=== PATIENT | male | born 1985 | race Caucasian/White ===

== ENCOUNTER → 2016-09-01 | Outpatient (CLI) | payer BC ==
--- NOTE | 2016-09-01 22:09 | MR ---
EXAMINATION TYPE: MR lumbar spine wo/w con DATE OF EXAM: 09/01/2016 7:17 PM COMPARISON: NONE HISTORY: Surgery 2012 TECHNIQUE: Multiplanar, multisequence images of the lumbar spine were acquired utilizing 20 mL intravenous Multi Cassandra gadolinium contrast. L1-L2: Normal disc appearance without desiccation. No herniation, protrusion or disc bulging. No ca nal stenosis is present. Foramina are patent bilaterally. L2-L3: Normal disc appearance without desiccation. No herniation, protrusion or disc bulging. No ca nal stenosis is present. Foramina are patent bilaterally. L3-L4: Normal disc appearance without desiccation. No herniation, protrusion or disc bulging. No ca nal stenosis is present. Foramina are patent bilaterally. L4-L5: Normal disc appearance without desiccation. No herniation, protrusion or disc bulging. No ca nal stenosis is present. Foramina are patent bilaterally. L5-S1: Right-sided laminectomy change is suspected, there is loss of fat signal about the right S1 ne rve root, postoperative changes are present in the subcutaneous fat posterior to this level. No signi ficant foraminal encroachment. Loss of disc height and signal is present, right posterior paracentral disc herniation may be recurrent at this level contacting the proximal S1 nerve root on the right. N o significant central stenosis. Abnormal signal present at the posterior aspect of the disc is likely postoperative. Minimal spurring is present at L5-S1 at this level. Lumbar vertebral bodies show preserved height and alignment, endplate discogenic marrow signal change present L5-S1 No paraspinal masses are identified. Conus medullaris has a normal appearance. IMPRESSION: Small right posterior paracentral disc herniation may be recurrent and L5-S1, postoperative changes a re present, correlate for right S1 radiculopathy.
== END | disposition home or self-care (01) ==
LOC: RADMRIMAIN 18:15
PROVIDERS: ATTEND Physician Assistant
DX: M51.27 Other intervertebral disc displacement, lumbosacral region (principal)
CPT/HCPCS: 72158; A9577

== ENCOUNTER 2022-04-03 01:24 | Emergency (ER) | payer BC ==
[2022-04-03 01:36] VITALS: RESP 18; TEMP 98.5
--- NOTE | 2022-04-03 02:13 | ED ---
General Adult HPI - General Chief complaint: Upper Respiratory Infection Stated complaint: Congestion, GENA Time Seen by Provider: 04/03/22 01:45 Source: patient, RN notes reviewed Mode of arrival: wheelchair Limitations: no limitations - History of Present Illness Initial comments: This is a 36-year-old male who presents to the emergency Department with complaints of difficulty breathing, onset this evening. Patient states he has had a cough all day but now is having difficulty clearing the congestion from his throat and chest. States he had a root canal done yesterday and was feeling fine. Did not take any medications to treat his symptoms. Denies fever, chills, headache, dizziness, chest pain, abdominal pain, nausea, vomiting, diarrhea, or dysuria. - Related Data Home Medications Medication Instructions Recorded Confirmed ALPRAZolam [Xanax] 1 mg PO QID 12/31/15 12/31/15 ARIPiprazole [Abilify] 10 mg PO DAILY 12/31/15 12/31/15 Baclofen 20 mg PO TID PRN 12/31/15 12/31/15 Clobetasol Propionate [Temovate 1 applic TOPICAL BID 12/31/15 12/31/15 0.05% Cream] Dextroamphetamine/Amphetamine 30 mg PO BID 12/31/15 12/31/15 [Adderall] buPROPion XL [Wellbutrin XL] 300 mg PO DAILY 12/31/15 12/31/15 oxyCODONE HCL [oxyCODONE HCL (IR)] 15 mg PO 5XD 12/31/15 12/31/15 Previous Rx's Medication Instructions Recorded ALPRAZolam [Xanax] 1 mg PO QID tab 01/02/16 ARIPiprazole [Abilify] 10 mg PO DAILY tab 01/02/16 Acetaminophen Tab [Tylenol] 650 mg PO Q6HR PRN #0 tab 01/02/16 Clobetasol Propionate [Temovate 1 applic TOPICAL BID applic 01/02/16 0.05% Cream] Pantoprazole Sodium [Protonix] 40 mg PO AC-BRKFST #30 tablet. 01/02/16 bisacodyL [Dulcolax] 5 mg PO DAILY PRN #0 tablet. 01/02/16 buPROPion XL [Wellbutrin XL] 300 mg PO DAILY tab.er.24h 01/02/16 oxyCODONE HCL [OxyIR] 15 mg PO 5XD tab 01/02/16 Azithromycin [Zithromax] 250 mg PO DAILY 1 Days #4 tab 04/03/22 guaiFENesin-DM 600/30MG [Mucinex 1 tab PO Q12HR PRN #14 tab 04/03/22 Dm] Allergies Allergy/AdvReac Type Severity Reaction Status Date / Time No Known Allergies Allergy Verified 04/03/22 01:32 Review of Systems ROS Statement: Those systems with pertinent positive or pertinent negative responses have been documented in the HPI. ROS Other: All systems not noted in ROS Statement are negative. Past Medical History Past Medical History: Thyroid Disorder History of Any Multi-Drug Resistant Organisms: None Reported Past Surgical History: Back Surgery Additional Past Surgical History / Comment(s): neck surgery Past Anesthesia/Blood Transfusion Reactions: No Reported Reaction Past Psychological History: Anxiety, Depression Smoking Status: Never smoker Past Alcohol Use History: None Reported Past Drug Use History: None Reported - Past Family History Father History Unknown: Yes General Exam Limitations: no limitations General appearance: alert, in no apparent distress (Well-developed, well-n ourished male who is somewhat ill in appearance but in no acute distress. Initial temperature 98.5, pulse 107, respirations 18, blood pressure 138/82, pulse ox 94% on room air.) Eye exam: Present: normal appearance. Absent: scleral icterus, conjunctival injection ENT exam: Present: normal exam, normal oropharynx, mucous membranes moist, TM's normal bilaterally Expanded Mouth exam: Present: normal external inspection, tongue normal. Absent: drooling, trismus Teeth exam: Present: normal inspection Throat exam: normal inspection. negative: tonsillar erythema, tonsillomegaly, tonsillar exudate Neck exam: Present: normal inspection, full ROM. Absent: tenderness, meningismus, lymphadenopathy Respiratory exam: Present: normal lung sounds bilaterally. Absent: respiratory distress, wheezes, rales, rhonchi, stridor, chest wall tenderness Cardiovascular Exam: Present: normal rhythm, tachycardia, normal heart sounds. Absent: systolic murmur, diastolic murmur, rubs, gallop, clicks GI/Abdominal exam: Present: soft, normal bowel sounds. Absent: distended, tende rness, guarding, rebound, rigid Neurological exam: Present: alert, oriented X3 Psychiatric exam: Present: flat affect Skin exam: Present: warm, dry, intact, normal color. Absent: rash Course Vital Signs 04/03/22 04/03/22 04/03/22 01:32 02:10 03:14 Temperature 98.5 F Pulse Rate 107 H 101 H Respiratory 18 18 Rate Blood Pressure 138/82 147/89 O2 Sat by Pulse 94 L 95 Oximetry Medical Decision Making - Medical Decision Making This is a 36-year-old male who presents to the emergency department accompanied by his father for evaluation of cough and congestion. Upon exam, patient appears to be feeling poorly but is in no acute distress. He has audible congestion and a loose productive cough. Respirations are unlabored. Patient does not appear toxic. He is afebrile though mildly tachycardic. Chest x-ray was obtained and was unremarkable. Laboratory studies were reviewed with no significant findings. Covid is negative. Patient will be discharged home with a Z-Missael and an expectorant. He is encouraged to follow up with his PCP for a recheck on Wednesday. Return parameters were discussed in detail. Patient and father verbalized understanding and agreed with this plan. Attending: Asad. - Lab Data Result diagrams: 04/03/22 02:41 04/03/22 02:41 Lab Results 04/03/22 04/03/22 04/03/22 Range/Units 02:10 02:41 02:41 WBC 9.2 (3.8-10.6) k/uL RBC 5.16 (4.30-5.90) m/uL Hgb 15.1 (13.0-17.5) gm/dL Hct 44.4 (39.0-53.0) % MCV 86.2 (80.0-100.0) fL MCH 29.3 (25.0-35.0) pg MCHC 34.0 (31.0-37.0) g/dL RDW 14.1 (11.5-15.5) % Plt Count 407 (150-450) k/uL MPV 6.6 Neutrophils % 83 % Lymphocytes % 12 % Monocytes % 3 % Eosinophils % 1 % Basophils % 0 % Neutrophils # 7.6 (1.3-7.7) k/uL Lymphocytes # 1.1 (1.0-4.8) k/uL Monocytes # 0.3 (0-1.0) k/uL Eosinophils # 0.1 (0-0.7) k/uL Basophils # 0.0 (0-0.2) k/uL PT 10.7 (9.0-12.0) sec INR 1.0 (<1.2) APTT 25.6 (22.0-30.0) sec D-Dimer 0.35 (<0.60) mg/L FEU Sodium (137-145) mmol/L Potassium (3.5-5.1) mmol/L Chloride (98-107) mmol/L Carbon Dioxide (22-30) mmol/L Anion Gap mmol/L BUN (9-20) mg/dL Creatinine (0.66-1.25) mg/dL Est GFR (CKD-EPI)AfAm (>60 ml/min/1.73 sqM) Est GFR (CKD-EPI)NonAf (>60 ml/min/1.73 sqM) Glucose (74-99) mg/dL Plasma Lactic Acid Moses (0.7-2.0) mmol/L Calcium (8.4-10.2) mg/dL Magnesium (1.6-2.3) mg/dL Total Bilirubin (0.2-1.3) mg/dL AST (17-59) U/L ALT (4-49) U/L Alkaline Phosphatase (38-126) U/L Troponin I (0.000-0.034) ng/mL Total Protein (6.3-8.2) g/dL Albumin (3.5-5.0) g/dL Coronavirus (PCR) Not Detected (Not Detectd) 04/03/22 04/03/22 04/03/22 Range/Units 02:41 02:41 02:41 WBC (3.8-10.6) k/uL RBC (4.30-5.90) m/uL Hgb (13.0-17.5) gm/dL Hct (39.0-53.0) % MCV (80.0-100.0) fL MCH (25.0-35.0) pg MCHC (31.0-37.0) g/dL RDW (11.5-15.5) % Plt Count (150-450) k/uL MPV Neutrophils % % Lymphocytes % % Monocytes % % Eosinophils % % Basophils % % Neutrophils # (1.3-7.7) k/uL Lymphocytes # (1.0-4.8) k/uL Monocytes # (0-1.0) k/uL Eosinophils # (0-0.7) k/uL Basophils # (0-0.2) k/uL PT (9.0-12.0) sec INR (<1.2) APTT (22.0-30.0) sec D-Dimer (<0.60) mg/L FEU Sodium 141 (137-145) mmol/L Potassium 4.1 (3.5-5.1) mmol/L Chloride 108 H (98-107) mmol/L Carbon Dioxide 24 (22-30) mmol/L Anion Gap 9 mmol/L BUN 6 L (9-20) mg/dL Creatinine 0.65 L (0.66-1.25) mg/dL Est GFR (CKD-EPI)AfAm >90 (>60 ml/min/1.73 sqM) Est GFR (CKD-EPI)NonAf >90 (>60 ml/min/1.73 sqM) Glucose 112 H (74-99) mg/dL Plasma Lactic Acid Moses 2.0 (0.7-2.0) mmol/L Calcium 10.0 (8.4-10.2) mg/dL Magnesium 2.0 (1.6-2.3) mg/dL Total Bilirubin 0.5 (0.2-1.3) mg/dL AST 33 (17-59) U/L ALT 49 (4-49) U/L Alkaline Phosphatase 148 H (38-126) U/L Troponin I <0.012 (0.000-0.034) ng/mL Total Protein 8.3 H (6.3-8.2) g/dL Albumin 4.6 (3.5-5.0) g/dL Coronavirus (PCR) (Not Detectd) - Radiology Data Radiology results: report reviewed, image reviewed Chest x-ray was obtained. Report was reviewed in its entirety. Impression per Dr. Morelos is no active cardiopulmonary disease. Disposition Clinical Impression: Acute bronchitis Disposition: HOME SELF-CARE Condition: Stable Instructions (If sedation given, give patient instructions): Acute Bronchitis (ED) Additional Instructions: Take antibiotic as directed. Mucinex as an expectorant to help expel mucus from your lungs. Follow-up with your PCP for a recheck next week. May take Motrin or Tylenol if needed for pain. Return to the emergency department with any new, worsening, or concerning symptoms as we discussed. Prescriptions: guaiFENesin-DM 600/30MG [Mucinex Dm] 1 tab PO Q12HR PRN #14 tab PRN Reason: Cough Azithromycin [Zithromax] 250 mg PO DAILY 1 Days #4 tab Is patient prescribed a controlled substance at d/c from ED?: No Referrals: Javier Toro MD [Primary Care Provider] - 1-2 days Time of Disposition: 04:27
[2022-04-03 02:46] LABS: Basophils % (A) 0 %; Eosinophils # (A) 0.1 k/uL (0-0.7); Eosinophils % (A) 1 %; HCT 44.4 % (39.0-53.0); HGB 15.1 gm/dL (13.0-17.5); Lymphocytes # (A) 1.1 k/uL (1.0-4.8); Lymphocytes % (A) 12 %; MCH 29.3 pg (25.0-35.0); MCV 86.2 fL (80.0-100.0); Mean Platelet Volume 6.6; Monocytes # (A) 0.3 k/uL (0-1.0); Monocytes % (A) 3 %; Neutrophils # (A) 7.6 k/uL (1.3-7.7); Neutrophils % (A) 83 %; Platelet Count 407 k/uL (150-450); RBC 5.16 m/uL (4.30-5.90); RDW 14.1 % (11.5-15.5); WBC 9.2 k/uL (3.8-10.6)
[2022-04-03 02:59] LABS: Partial Thromboplastin Time 25.6 sec (22.0-30.0); Prothrombin Time 10.7 sec (9.0-12.0)
[2022-04-03 03:05] LABS: ALT 49 U/L (4-49); AST 33 U/L (17-59); African American GFR (CKD) >90 (>60 ml/min/1.73 sqM); Albumin 4.6 g/dL (3.5-5.0); Alkaline Phosphatase 148 U/L (38-126); Anion Gap 9 mmol/L; Blood Urea Nitrogen 6 mg/dL (9-20); Carbon Dioxide 24 mmol/L (22-30); Chloride 108 mmol/L (98-107); Glucose 112 mg/dL (74-99); Non-African American GFR(CKD) >90 (>60 ml/min/1.73 sqM); Potassium 4.1 mmol/L (3.5-5.1); Sodium 141 mmol/L (137-145); Total Bilirubin 0.5 mg/dL (0.2-1.3); Total Protein 8.3 g/dL (6.3-8.2)
--- NOTE | 2022-04-03 03:13 | XR ---
EXAMINATION TYPE: XR chest 1V DATE OF EXAM: 04/03/2022 COMPARISON: NONE HISTORY: Short of breath TECHNIQUE: Single view FINDINGS: There is no heart failure nor confluent pneumonic infiltrate. There is cervical spine fusio n surgery. Costophrenic angles are clear. There are no hilar masses. Bony thorax is intact. IMPRESSION: No active cardiopulmonary disease.
[2022-04-03 03:34] VITALS: BP 147/89; PULSE 101
[2022-04-03] MEDS ORDERED: AZITHROMYCIN 500 MG TAB PO STA (04:19)
== END 2022-04-03 04:40 | disposition home or self-care (01) ==
LOC: EC 01:24
DX: J20.9 Acute bronchitis, unspecified (principal); E07.9 Disorder of thyroid, unspecified; F41.9 Anxiety disorder, unspecified; F32.A Depression, unspecified; Z79.890 Hormone replacement therapy; Z20.822 Contact with and (suspected) exposure to COVID-19
CPT/HCPCS: 36415; 71045; 80053; 83605; 83735; 84484; 85025; 85379; 85610; 85730; 87635; 93005; 99285

== ENCOUNTER → 2024-01-19 | Outpatient (CLI) | payer BC ==
[2024-01-19 18:32] LABS: Basophils # (A) 0.07 X 10*3/uL (0.00-0.10); Basophils % (A) 0.7 %; Eosinophils # (A) 0.13 X 10*3/uL (0.04-0.35); Eosinophils % (A) 1.4 %; HGB 14.7 g/dL (13.0-17.0); Lymphocytes % (A) 37.8 %; MCH 28.5 pg (27.0-32.0); MCHC 32.7 g/dL (32.0-37.0); MCV 87.4 FL (80.0-97.0); Mean Platelet Volume 9.8 FL (9.5-12.2); Monocytes # (A) 0.76 X 10*3/uL (0.20-1.00); NRBC Per 100 WBC 0 X 10*3/uL (0.00-0.01); Neutrophils # (A) 4.95 X 10*3/uL (1.80-7.70); Neutrophils % (A) 51.9 %; Platelet Count 351 X 10*3/uL (140-440); RBC 5.15 X 10*6/uL (4.40-5.60); RDW 13.5 % (11.5-14.5); WBC 9.53 X 10*3/uL (4.50-10.00)
[2024-01-19 18:39] LABS: Erythrocyte Sedimentation Rate 37 mm/Hr (0-15)
== END | disposition home or self-care (01) ==
LOC: LABWHC1 14:11
PROVIDERS: ATTEND Orthopaedic Surgery Foot and Ankle Surgery
DX: M25.571 Pain in right ankle and joints of right foot (principal); M65.9 Synovitis and tenosynovitis, unspecified
CPT/HCPCS: 36415; 84550; 85025; 85652

== ENCOUNTER 2024-07-01 15:26 | Emergency (ER) | payer BC ==
--- NOTE | 2024-07-01 15:50 | ED ---
Syncope HPI - General Chief Complaint: Syncope Stated Complaint: Syncope Time Seen by Provider: 07/01/24 15:28 Source: patient, EMS Mode of arrival: EMS Limitations: no limitations - History of Present Illness Initial Comments: This patient is 38-year-old man who presents after having what sounds like syncopal episode. Patient states that he was in his usual state of health and then less than an hour before coming in he got up to go use the bathroom and then believes he passed out. Patient felt lightheaded and then woke up on the floor. He states that it felt like he scraped his knee when he went to the ground. He denies other injury. The patient states that on coming to he was having some palpitations. The patient's father called EMS who brought him to have evaluation. They stated that he had a period of bigeminy on the heart monitor and then has been in sinus rhythm. The patient denies chest pain, dyspnea currently. He states he was sweaty when he came to but that resolved. MD Complaint: loss of consciousness Onset/Timin -: minutes(s) Prodromal Symptoms: lightheaded -: second(s) Witnessed: yes - by bystander Injuries Sustained Associated with Event: RLE Current Symptoms: lightheaded Context: standing up Treatments Prior to Arrival: none - Related Data Home Medications Medication Instructions Recorded Confirmed ALPRAZolam [Xanax] 1 mg PO QID 12/31/15 12/31/15 ARIPiprazole [Abilify] 10 mg PO DAILY 12/31/15 12/31/15 Baclofen 20 mg PO TID PRN 12/31/15 12/31/15 Clobetasol Propionate [Temovate 1 applic TOPICAL BID 12/31/15 12/31/15 0.05% Cream] Dextroamphetamine/Amphetamine 30 mg PO BID 12/31/15 12/31/15 [Adderall] buPROPion XL [Wellbutrin XL] 300 mg PO DAILY 12/31/15 12/31/15 oxyCODONE HCL [oxyCODONE HCL (IR)] 15 mg PO 5XD 12/31/15 12/31/15 Previous Rx's Medication Instructions Recorded ALPRAZolam [Xanax] 1 mg PO QID tab 01/02/16 ARIPiprazole [Abilify] 10 mg PO DAILY tab 01/02/16 Acetaminophen Tab [Tylenol] 650 mg PO Q6HR PRN #0 tab 01/02/16 Clobetasol Propionate [Temovate 1 applic TOPICAL BID applic 01/02/16 0.05% Cream] Pantoprazole Sodium [Protonix] 40 mg PO AC-BRKFST #30 tablet. 01/02/16 bisacodyL [Dulcolax] 5 mg PO DAILY PRN #0 tablet. 01/02/16 buPROPion XL [Wellbutrin XL] 300 mg PO DAILY tab.er.24h 01/02/16 oxyCODONE HCL [OxyIR] 15 mg PO 5XD tab 01/02/16 Azithromycin [Zithromax] 250 mg PO DIRECTED #6 tab 04/03/22 Azithromycin [Zithromax] 250 mg PO DAILY 1 Days #4 tab 04/03/22 guaiFENesin-DM 600/30MG [Mucinex 1 tab PO Q12HR PRN #14 tab 04/03/22 Dm] Allergies Allergy/AdvReac Type Severity Reaction Status Date / Time No Known Allergies Allergy Verified 04/03/22 01:32 Review of Systems ROS Statement: Those systems with pertinent positive or pertinent negative responses have been documented in the HPI. ROS Other: All systems not noted in ROS Statement are negative. Constitutional: Denies: fever, chills, weakness Respiratory: Denies: cough, dyspnea Cardiovascular: Reports: syncope. Denies: chest pain, palpitations, orthopnea, edema Gastrointestinal: Denies: abdominal pain, nausea, vomiting, melena, hematochezia Genitourinary: Denies: dysuria, hematuria Musculoskeletal: Denies: back pain Skin: Reports: other (Right knee abrasion). Denies: rash Neurological: Denies: headache, weakness, numbness, paresthesias, confusion Past Medical History Past Medical History: Thyroid Disorder History of Any Multi-Drug Resistant Organisms: None Reported Past Surgical History: Back Surgery Additional Past Surgical History / Comment(s): neck surgery Past Anesthesia/Blood Transfusion Reactions: No Reported Reaction Past Psychological History: Anxiety, Depression Smoking Status: Never smoker Past Alcohol Use History: None Reported Past Drug Use History: Marijuana - Past Family History Father History Unknown: Yes General Exam Limitations: no limitations General appearance: alert, in no apparent distress Head exam: Present: atraumatic, normocephalic Eye exam: Present: normal appearance. Absent: scleral icterus, conjunctival injection ENT exam: Present: mucous membranes dry Neck exam: Present: normal inspection, full ROM. Absent: tenderness Respiratory exam: Present: normal lung sounds bilaterally. Absent: respiratory distress, wheezes, rales, rhonchi, stridor, chest wall tenderness, accessory muscle use Cardiovascular Exam: Present: regular rate, normal rhythm, normal heart sounds. Absent: systolic murmur, diastolic murmur, rubs, gallop GI/Abdominal exam: Present: soft. Absent: distended, tenderness, guarding, rebound, rigid, mass, pulsatile mass Extremities exam: Present: normal inspection, normal capillary refill. Absent: pedal edema, calf tenderness Back exam: Present: normal inspection. Absent: CVA tenderness (R), CVA tenderness (L), vertebral tenderness Neurological exam: Present: alert, oriented X3, CN II-XII intact. Absent: motor sensory deficit Skin exam: Present: warm, dry, intact, abrasion (Right elbow and right knee). Absent: rash Course Vital Signs 07/01/24 07/01/24 07/01/24 15:28 15:40 15:41 Temperature 98.0 F Pulse Rate 107 H Pulse Rate [ 104 H Violent Crimes Detective ] Respiratory 20 Rate Blood Pressure 128/84 Blood Pressure [Left Arm Standing] Blood Pressure [Left Arm Supine] O2 Sat by Pulse 94 L 87 L Oximetry 07/01/24 07/01/24 07/01/24 15:45 16:14 16:16 Temperature Pulse Rate Pulse Rate [ 90 102 H Violent Cr[employer] Detective ] Respiratory Rate Blood Pressure Blood Pressure [Left Arm Standing] Blood Pressure 113/74 111/75 [Left Arm Supine] O2 Sat by Pulse 92 L Oximetry 07/01/24 07/01/24 07/01/24 16:18 17:26 18:04 Temperature Pulse Rate 86 77 Pulse Rate [ 103 H Violent Crimes Detective ] Respiratory 18 20 Rate Blood Pressure 120/71 140/86 Blood Pressure 114/78 [Left Arm Standing] Blood Pressure [Left Arm Supine] O2 Sat by Pulse 91 L 98 Oximetry 07/01/24 19:55 Temperature 97.2 F L Pulse Rate 79 Pulse Rate [ Violent Cr[employer] Detective ] Respiratory 16 Rate Blood Pressure 140/93 Blood Pressure [Left Arm Standing] Blood Pressure [Left Arm Supine] O2 Sat by Pulse 98 Oximetry EKG Findings - EKG Results: EKG: interpreted by ERMD, sinus rhythm (Rate 95 bpm), normal axis - Blocks, [facility], Hypertrophy, ST Abn: QRS axis and voltage: low voltage (<0.5 MV total QRS and <1.0 MV in each precordial lead) Repolarization changes or abnormalities: nonspecific abnormality, ST segment, and/or T wave Medical Decision Making - Medical Decision Making The patient had CT angiography of the chest which I interpreted as negative for acute pulmonary embolism, negative for pneumothorax or infiltrate. The patient had chest x-ray that I interpreted as negative for acute infiltrate, pneumothorax, congestive heart failure The patient had x-ray of the knee that I interpreted as negative for acute fracture, dislocation Was pt. sent in by a medical professional or institution (VICKY Phillips, HYDROCRANE OPERATOR, urgent care, hospital, or intermediate...) When possible be specific @ -[No] Did you speak to anyone other than the patient for history (EMS, parent, family, police, friend...)? What history was obtained from this source @ -[Patient's father contributed to history Did you review nursing and triage notes (agree or disagree)? Why? @ -[I reviewed and agree with nursing and triage notes] Were old charts reviewed (outside hosp., previous admission, EMS record, old EKG, old radiological studies, urgent care reports/EKG's, intermediate records)? Report findings @ -[No old charts were reviewed] Differential Diagnosis (chest pain, altered mental status, abdominal pain women, abdominal pain men, vaginal bleeding, weakness, fever, dyspnea, syncope, headache, dizziness, GI bleed, back pain, seizure, CVA, palpatations, mental health, musculoskeletal)? @ -Differential Syncope: Valvular disease, hypertrophic cardiomyopathy, pulmonary embolism, tamponade, tachycardia, bradycardia, AK, hypovolemia, hemorrhage, dissection, anemia, intracranial hemorrhage, seizure, hypoglycemia, carbon monoxide poisoning, this is not meant to be an all-inclusive list. EKG interpreted by me (3pts min.). @ -[I interpreted as above] X-rays interpreted by me (1pt min.). @ -[I interpreted as above CT interpreted by me (1pt min.). @ -I interpreted as above U/S interpreted by me (1pt. min.). @ -[None done] What testing was considered but not performed or refused? (CT, X-rays, U/S, labs)? Why? @ -[None] What meds were considered but not given or refused? Why? @ -[None] Did you discuss the management of the patient with other professionals (professionals i.e. , PA, HYDROCRANE OPERATOR, lab, RT, psych nurse, social work faculty member, stable attendant, teacher, border patrol officer, piano case maker)? Give summary @ -[No] Was smoking cessation discussed for >3mins.? @ -[No] Was critical care preformed (if so, how long)? @ -[No] Were there social determinants of health that impacted care today? How? (Homelessness, low income, unemployed, alcoholism, drug addiction, transportation, low edu. Level, literacy, decrease access to med. care, long term, rehab)? @ -[No] Was there de-escalation of care discussed even if they declined (Discuss DNR or withdrawal of care, Hospice)? DNR status @ -[No] What co-morbidities impacted this encounter? (DM, HTN, Smoking, COPD, CAD, Cancer, CVA, ARF, Chemo, Hep., AIDS, mental health diagnosis, sleep apnea, morbid obesity)? @ -[None] Was patient admitted / discharged? Hospital course, mention meds given and route, prescriptions, significant lab abnormalities, going to OR and other pe rtinent info. @ -[Patient is 38-year-old man with syncopal episode. The patient's exam and physical are benign. He is at baseline. Discussed appropriate further care and follow-up including possible need for Holter monitor/stress test. Patient is feeling well and would like to go home. Will have further workup as outpatient. We discussed return parameters. Undiagnosed new problem with uncertain prognosis? @ -[No] Drug Therapy requiring intensive monitoring for toxicity (Heparin, Nitro, I nsulin, Cardizem)? @ -[No] Were any procedures done? @ -[No] Diagnosis/symptom? @ -[Acute syncopal episode Acute knee contusion Acute, or Chronic, or Acute on Chronic? @ -[Acute Uncomplicated (without systemic symptoms) or Complicated (systemic symptoms)? @ -[Uncomplicated Side effects of treatment? @ -[No] Exacerbation, Progression, or Severe Exacerbation? @ -[No] Poses a threat to life or bodily function? How? (Chest pain, USA, AK, pneumonia, PE, COPD, DKA, ARF, appy, cholecystitis, CVA, Diverticulitis, Homicidal, Suicidal, threat to staff... and all critical care pts) @ -[No] - Lab Data Result diagrams: 07/01/24 16:12 07/01/24 16:12 Lab Results 07/01/24 07/01/24 07/01/24 Range/Units 16:12 16:12 16:12 WBC 9.8 (3.8-10.6) k/uL RBC 5.14 (4.30-5.90) m/uL Hgb 14.9 (13.0-17.5) gm/dL Hct 45.2 (39.0-53.0) % MCV 88.0 (80.0-100.0) fL MCH 29.0 (25.0-35.0) pg MCHC 32.9 (31.0-37.0) g/dL RDW 14.5 (11.5-15.5) % Plt Count 368 (150-450) k/uL MPV 6.8 Neutrophils % 71 % Lymphocytes % 22 % Monocytes % 5 % Eosinophils % 1 % Basophils % 0 % Neutrophils # 6.9 (1.3-7.7) k/uL Lymphocytes # 2.1 (1.0-4.8) k/uL Monocytes # 0.5 (0-1.0) k/uL Eosinophils # 0.1 (0-0.7) k/uL Basophils # 0.0 (0-0.2) k/uL PT 10.5 (10.0-12.5) sec INR 0.9 (<1.2) APTT 25.0 (22.0-30.0) sec D-Dimer 0.81 H (<0.60) mg/L FEU Sodium 136 L (137-145) mmol/L Potassium 3.9 (3.5-5.1) mmol/L Chloride 102 (98-107) mmol/L Carbon Dioxide 16 L (22-30) mmol/L Anion Gap 18 mmol/L BUN 10 (9-20) mg/dL Creatinine 0.77 (0.66-1.25) mg/dL Est GFR (CKD-EPI)AfAm >90 (>60 ml/min/1.73 sqM) Est GFR (CKD-EPI)NonAf >90 (>60 ml/min/1.73 sqM) Glucose 135 H (74-99) mg/dL Calcium 9.8 (8.4-10.2) mg/dL Total Bilirubin 1.2 (0.2-1.3) mg/dL AST 38 (17-59) U/L ALT 42 (4-49) U/L Alkaline Phosphatase 104 (38-126) U/L Troponin I (0.000-0.034) ng/mL Total Protein 8.2 (6.3-8.2) g/dL Albumin 4.8 (3.5-5.0) g/dL 07/01/24 Range/Units 16:12 WBC (3.8-10.6) k/uL RBC (4.30-5.90) m/uL Hgb (13.0-17.5) gm/dL Hct (39.0-53.0) % MCV (80.0-100.0) fL MCH (25.0-35.0) pg MCHC (31.0-37.0) g/dL RDW (11.5-15.5) % Plt Count (150-450) k/uL MPV Neutrophils % % Lymphocytes % % Monocytes % % Eosinophils % % Basophils % % Neutrophils # (1.3-7.7) k/uL Lymphocytes # (1.0-4.8) k/uL Monocytes # (0-1.0) k/uL Eosinophils # (0-0.7) k/uL Basophils # (0-0.2) k/uL PT (10.0-12.5) sec INR (<1.2) APTT (22.0-30.0) sec D-Dimer (<0.60) mg/L FEU Sodium (137-145) mmol/L Potassium (3.5-5.1) mmol/L Chloride (98-107) mmol/L Carbon Dioxide (22-30) mmol/L Anion Gap mmol/L BUN (9-20) mg/dL Creatinine (0.66-1.25) mg/dL Est GFR (CKD-EPI)AfAm (>60 ml/min/1.73 sqM) Est GFR (CKD-EPI)NonAf (>60 ml/min/1.73 sqM) Glucose (74-99) mg/dL Calcium (8.4-10.2) mg/dL Total Bilirubin (0.2-1.3) mg/dL AST (17-59) U/L ALT (4-49) U/L Alkaline Phosphatase (38-126) U/L Troponin I <0.012 (0.000-0.034) ng/mL Total Protein (6.3-8.2) g/dL Albumin (3.5-5.0) g/dL Disposition Clinical Impression: Syncope and collapse, Contusion of knee, right Disposition: HOME SELF-CARE Condition: Good Instructions (If sedation given, give patient instructions): Syncope (ED) Is patient prescribed a controlled substance at d/c from ED?: No Referrals: Javier Toro MD [Primary Care Provider] - 1-2 days Willian Quiñonez MD [STAFF PHYSICIAN] - 1-2 days Yaa Bloom MD [REFERRING] - 1-2 days
[2024-07-01 16:18] LABS: Basophils % (A) 0 %; Eosinophils # (A) 0.1 k/uL (0-0.7); Eosinophils % (A) 1 %; HCT 45.2 % (39.0-53.0); HGB 14.9 gm/dL (13.0-17.5); Lymphocytes # (A) 2.1 k/uL (1.0-4.8); Lymphocytes % (A) 22 %; MCHC 32.9 g/dL (31.0-37.0); Mean Platelet Volume 6.8; Monocytes # (A) 0.5 k/uL (0-1.0); Monocytes % (A) 5 %; Neutrophils # (A) 6.9 k/uL (1.3-7.7); Neutrophils % (A) 71 %; Platelet Count 368 k/uL (150-450); RBC 5.14 m/uL (4.30-5.90); RDW 14.5 % (11.5-15.5); WBC 9.8 k/uL (3.8-10.6)
[2024-07-01] MEDS: SODIUM CHLORIDE 0.9% 1,000 ML IV STA (16:19)
[2024-07-01 16:23] LABS: African American GFR (CKD) >90 (>60 ml/min/1.73 sqM); Albumin 4.8 g/dL (3.5-5.0); Anion Gap 18 mmol/L; Blood Urea Nitrogen 10 mg/dL (9-20); Calcium 9.8 mg/dL (8.4-10.2); Carbon Dioxide 16 mmol/L (22-30); Chloride 102 mmol/L (98-107); Glucose 135 mg/dL (74-99); Non-African American GFR(CKD) >90 (>60 ml/min/1.73 sqM); Potassium 3.9 mmol/L (3.5-5.1); Sodium 136 mmol/L (137-145); Total Protein 8.2 g/dL (6.3-8.2)
[2024-07-01 16:24] LABS: AST 38 U/L (17-59); Alkaline Phosphatase 104 U/L (38-126); Total Bilirubin 1.2 mg/dL (0.2-1.3)
[2024-07-01 16:30] LABS: INR 0.9 (<1.2); Prothrombin Time 10.5 sec (10.0-12.5)
[2024-07-01 16:35] LABS: ALT 42 U/L (4-49)
--- NOTE | 2024-07-01 16:50 | XR ---
EXAMINATION TYPE: XR chest 2V DATE OF EXAM: 07/01/2024 4:34 PM COMPARISON: Chest radiographs from 04/03/2022 CLINICAL INDICATION: Male, 38 years old with history of syncope; [facility] TECHNIQUE: XR chest 2V Frontal and lateral views of the chest. FINDINGS: Lungs/Pleura: There is no evidence of pleural effusion, focal consolidation, or pneumothorax. Pulmonary vascularity: Pulmonary vascular congestion. Heart/mediastinum: Cardiomediastinal silhouette is enlarged and stable. Musculoskeletal: No acute osseous pathology. Other findings: None Lines/Tubes: IMPRESSION: Low lung volumes with a generalized hazy appearance which could represent atelectasis versus pulmonar y edema correlate with serum BNP. [facility], , 07/01/2024 4:48 PM
--- NOTE | 2024-07-01 18:34 | CT ---
EXAMINATION TYPE: CT chest angio for PE DATE OF EXAM: 07/01/2024 6:00 PM COMPARISON: Same day chest radiograph. CLINICAL INDICATION: Male, 38 years old with history of syncope, possible PE; syncope TECHNIQUE/CONTRAST: CTA scan of the thorax is performed with IV Contrast, patient injected with 100ml mL of Isovue 370, M IP images are created and reviewed these are created on a separate workstation.. CT DLP: 1489 mGycm, Automated exposure control for dose reduction was used. FINDINGS: Pulmonary Artery: There is no evidence for a filling defect within the pulmonary vasculature to sugge st acute pulmonary embolism. The pulmonary artery is of normal size. Lungs/Pleura: Intralobular septal thickening. No evidence of focal consolidation, pleural effusion or pneumothorax. Airway: Large airways are patent. Heart: The heart is mildly enlarged for size. Vasculature: No evidence of aortic aneurysm. Mediastinum: No gross evidence of adenopathy. Musculoskeletal: No acute osseous abnormalities Soft Tissues/lymph nodes: Unremarkable. Lower neck: No significant findings. Upper Abdomen: Diffuse low-attenuation to the liver parenchyma.. IMPRESSION: 1. No evidence of pulmonary embolism. 2. Hepatic steatosis. 3. Low lung volumes with Cardiomegaly and possible pulmonary vascular congestion correlate for volume overload.. [facility], , 07/01/2024 6:31 PM
[2024-07-01] MEDS: IBUPROFEN 400 MG TAB PO STA (18:48)
--- NOTE | 2024-07-01 19:31 | XR ---
EXAMINATION TYPE: XR knee complete RT DATE OF EXAM: 07/01/2024 7:05 PM COMPARISON: None CLINICAL INDICATION: Male, 38 years old with history of fall injury; [facility] TECHNIQUE: XR knee complete RT views submitted.. FINDINGS: No evidence of any acute osseous pathology, soft tissue swelling, or joint effusion is no cem. Tricompartmental osteophyte formation involving the femoral condyles, tibial plateau and patella . Mild joint space narrowing. IMPRESSION: 1. No acute osseous pathology. 2. Mild tricompartmental osteoarthritic changes. [facility], Workstation: [employer][id number], 07/01/2024 7:29 PM
[2024-07-01 20:06] VITALS: BP 140/93; PULSE 79; RESP 16; TEMP 97.2
== END 2024-07-01 20:09 | disposition home or self-care (01) ==
LOC: EC 15:26
DX: S80.01XA Contusion of right knee, initial encounter (principal); S50.311A Abrasion of right elbow, initial encounter; R55 Syncope and collapse; X58.XXXA Exposure to other specified factors, initial encounter; Y92.009 Unspecified place in unspecified non-institutional (private) residence as the place of occurrence of the external cause
CPT/HCPCS: 36415; 93005; 85379; 80053; 84484; 85025; 85610; 85730; 73562; 71046; 71275; 99285; Q9967

== ENCOUNTER 2025-01-05 00:33 | Emergency (ER) | payer BC ==
[2025-01-05] MEDS: ALPRAZolam 1 MG TAB PO STA ×2 (01:01→04:04)
[2025-01-05 01:11] LABS: Basophils # (A) 0.07 10*3/uL (0.00-0.10); Basophils % (A) 0.7 %; Eosinophils # (A) 0.03 10*3/uL (0.04-0.35); Eosinophils % (A) 0.3 %; HGB 15.5 g/dL (13.0-17.0); Lymphocytes # (A) 1.64 10*3/uL (0.90-5.00); Lymphocytes % (A) 16.7 %; MCHC 35.2 g/dL (32.0-37.0); MCV 85.3 fL (80.0-97.0); Mean Platelet Volume 8.9 fL (9.5-12.2); Monocytes % (A) 9.2 %; Neutrophils # (A) 7.12 10*3/uL (1.80-7.70); Neutrophils % (A) 72.7 %; Platelet Count 362 10*3/uL (140-440); RBC 5.16 10*6/uL (4.40-5.60); RDW 13.7 % (11.5-14.5)
--- NOTE | 2025-01-05 01:21 | ED ---
Seizure HPI - General Chief Complaint: Seizure Stated Complaint: Seizure Time Seen by Provider: 01/05/25 00:35 Source: patient, EMS Mode of arrival: EMS Limitations: no limitations - History of Present Illness Initial Comments: This patient is a 39-year-old man who is brought to have evaluation after he had 2 seizures tonight. The patient was reportedly lying on the couch watching a hockey game. His father was in the same room. The patient stated that he thought that he had dozed off. The next and he remembers is that EMS was there evaluating him. The patient's father reports that the patient had developed a seizure lasting 45 seconds or so. Per the report, the patient started to come around and then had a second seizure lasting probably around a minute and had slipped off the couch onto the floor. The patient denies feeling as if he was injured. He is a little bit sore he says throughout the body, muscular soreness. He denies head, neck, or any point tenderness in the back or extremities. The patient does note that he has been on Xanax 1 mg 4 times per day for a long period and that he did run out of this medication. MD Complaint: seizure -: minutes(s) Description of Episode: loss of consciousness, tonic-clonic movement -: second(s) Witnessed: yes - by bystander Trauma: No Seizure History: none Place: home Possible Precipitating Event: other Associated Symptoms: denies other symptoms - Related Data Home Medications Medication Instructions Recorded Confirmed ALPRAZolam [Xanax] 1 mg PO QID 12/31/15 12/31/15 ARIPiprazole [Abilify] 10 mg PO DAILY 12/31/15 12/31/15 Baclofen 20 mg PO TID PRN 12/31/15 12/31/15 Clobetasol Propionate [Temovate 1 applic TOPICAL BID 12/31/15 12/31/15 0.05% Cream] Dextroamphetamine/Amphetamine 30 mg PO BID 12/31/15 12/31/15 [Adderall] buPROPion XL [Wellbutrin XL] 300 mg PO DAILY 12/31/15 12/31/15 oxyCODONE HCL [oxyCODONE HCL (IR)] 15 mg PO 5XD 12/31/15 12/31/15 Previous Rx's Medication Instructions Recorded ALPRAZolam [Xanax] 1 mg PO QID tab 01/02/16 ARIPiprazole [Abilify] 10 mg PO DAILY tab 01/02/16 Acetaminophen Tab [Tylenol] 650 mg PO Q6HR PRN #0 tab 01/02/16 Clobetasol Propionate [Temovate 1 applic TOPICAL BID applic 01/02/16 0.05% Cream] Pantoprazole Sodium [Protonix] 40 mg PO AC-BRKFST #30 tablet. 01/02/16 bisacodyL [Dulcolax] 5 mg PO DAILY PRN #0 tablet. 01/02/16 buPROPion XL [Wellbutrin XL] 300 mg PO DAILY tab.er.24h 01/02/16 oxyCODONE HCL [OxyIR] 15 mg PO 5XD tab 01/02/16 Azithromycin [Zithromax] 250 mg PO DIRECTED #6 tab 04/03/22 Azithromycin [Zithromax] 250 mg PO DAILY 1 Days #4 tab 04/03/22 guaiFENesin-DM 600/30MG [Mucinex 1 tab PO Q12HR PRN #14 tab 04/03/22 Dm] ALPRAZolam [Xanax] 1 mg PO Q6H 3 Days #12 tab 01/05/25 Allergies Allergy/AdvReac Type Severity Reaction Status Date / Time No Known Allergies Allergy Verified 04/03/22 01:32 Review of Systems ROS Statement: Those systems with pertinent positive or pertinent negative responses have been documented in the HPI. ROS Other: All systems not noted in ROS Statement are negative. Constitutional: Denies: fever, chills Eyes: Denies: vision change Respiratory: Denies: cough, dyspnea Cardiovascular: Denies: chest pain, palpitations, edema, syncope Gastrointestinal: Denies: abdominal pain, nausea, vomiting, diarrhea Genitourinary: Denies: dysuria, hematuria Musculoskeletal: Denies: back pain Skin: Denies: rash Neurological: Denies: headache, weakness, numbness, confusion Past Medical History Past Medical History: Thyroid Disorder History of Any Multi-Drug Resistant Organisms: None Reported Past Surgical History: Back Surgery Additional Past Surgical History / Comment(s): neck surgery Past Anesthesia/Blood Transfusion Reactions: No Reported Reaction Past Psychological History: Anxiety, Depression Smoking Status: Never smoker, Vaper Past Alcohol Use History: None Reported Past Drug Use History: None Reported - Past Family History Father History Unknown: Yes General Exam Limitations: no limitations General appearance: alert, in no apparent distress Head exam: Present: atraumatic, normocephalic Eye exam: Present: normal appearance. Absent: scleral icterus, conjunctival injection ENT exam: Present: normal oropharynx Neck exam: Present: normal inspection, full ROM. Absent: meningismus Respiratory exam: Present: normal lung sounds bilaterally. Absent: respiratory distress, wheezes, rales, rhonchi, stridor, accessory muscle use Cardiovascular Exam: Present: regular rate, normal rhythm, normal heart sounds. Absent: systolic murmur, diastolic murmur, rubs, gallop GI/Abdominal exam: Present: soft. Absent: distended, tenderness, guarding, rigid, mass Extremities exam: Present: normal inspection, normal capillary refill. Absent: pedal edema, calf tenderness Back exam: Present: normal inspection. Absent: CVA tenderness (R), CVA tenderness (L) Neurological exam: Present: alert, oriented X3, CN II-XII intact. Absent: motor sensory deficit Skin exam: Present: warm, dry, intact, normal color. Absent: rash Course Vital Signs 01/05/25 00:34 Temperature 98.1 F Pulse Rate 66 Respiratory 20 Rate Blood Pressure 128/78 O2 Sat by Pulse 96 Oximetry Medical Decision Making - Lab Data Result diagrams: 01/05/25 01:01 01/05/25 01:01 Lab Results 01/05/25 01/05/25 Range/Units 01:01 01:01 WBC 9.80 (4.50-10.00) 10*3/uL RBC 5.16 (4.40-5.60) 10*6/uL Hgb 15.5 (13.0-17.0) g/dL Hct 44.0 (39.6-50.0) % MCV 85.3 (80.0-97.0) fL MCH 30.0 (27.0-32.0) pg MCHC 35.2 (32.0-37.0) g/dL Plt Count 362 (140-440) 10*3/uL MPV 8.9 L (9.5-12.2) fL Immature Gran % (Auto) 0.4 % Neutrophils % 72.7 % Lymphocytes % 16.7 % Monocytes % 9.2 % Eosinophils % 0.3 % Basophils % 0.7 % Immature Gran # 0.04 (0.00-0.04) 10*3/uL Neutrophils # 7.12 (1.80-7.70) 10*3/uL Lymphocytes # 1.64 (0.90-5.00) 10*3/uL Monocytes # 0.90 (0.20-1.00) 10*3/uL Eosinophils # 0.03 L (0.04-0.35) 10*3/uL Basophils # 0.07 (0.00-0.10) 10*3/uL Sodium 137 (137-145) mmol/L Potassium 4.1 (3.5-5.1) mmol/L Chloride 100 (98-107) mmol/L Carbon Dioxide 18 L (22-30) mmol/L Anion Gap 19 mmol/L BUN 9 (9-20) mg/dL Creatinine 0.69 (0.66-1.25) mg/dL Est GFR (CKD-EPI)AfAm >90 (>60 ml/min/1.73 sqM) Est GFR (CKD-EPI)NonAf >90 (>60 ml/min/1.73 sqM) Glucose 112 H (74-99) mg/dL Calcium 10.3 H (8.4-10.2) mg/dL Magnesium 2.5 H (1.6-2.3) mg/dL Total Bilirubin 1.0 (0.2-1.3) mg/dL AST 43 (17-59) U/L ALT 46 (4-49) U/L Alkaline Phosphatase 101 (38-126) U/L Total Protein 8.2 (6.3-8.2) g/dL Albumin 4.6 (3.5-5.0) g/dL - EKG Data -: EKG Interpreted by In EKG shows normal: sinus rhythm (With trigeminy/quadrigeminy. Rate approximately 94 bpm), axis (Normal), intervals (Normal), QRS complexes (Low voltage QRS complex) Rate: normal Interpretation: nonspecific ST-T wave changes Disposition Clinical Impression: Generalized seizure Disposition: HOME SELF-CARE Condition: Good Instructions (If sedation given, give patient instructions): Seizure/Epilepsy Discharge Instructions & Follow-Up Prescriptions: ALPRAZolam [Xanax] 1 mg PO Q6H 3 Days #12 tab Is patient prescribed a controlled substance at d/c from ED?: Yes When asked, does pt state using other controlled substances?: No If prescribed controlled substance>3 days was MAPS reviewed?: Prescribed <3 Days If opioid is for acute pain is fill amount 7 days or less?: Yes If Rx opioid, was Start Talking consent form obtained?: Yes Referrals: Javier Toro MD [Primary Care Provider] - 1-2 days Eusebio Bloom MD [REFERRING] - 1-2 days
[2025-01-05 01:23] LABS: AST 43 U/L (17-59); African American GFR (CKD) >90 (>60 ml/min/1.73 sqM); Albumin 4.6 g/dL (3.5-5.0); Alkaline Phosphatase 101 U/L (38-126); Anion Gap 19 mmol/L; Blood Urea Nitrogen 9 mg/dL (9-20); Calcium 10.3 mg/dL (8.4-10.2); Carbon Dioxide 18 mmol/L (22-30); Chloride 100 mmol/L (98-107); Glucose 112 mg/dL (74-99); Magnesium 2.5 mg/dL (1.6-2.3); Non-African American GFR(CKD) >90 (>60 ml/min/1.73 sqM); Potassium 4.1 mmol/L (3.5-5.1); Sodium 137 mmol/L (137-145); Total Protein 8.2 g/dL (6.3-8.2)
[2025-01-05 01:33] LABS: ALT 46 U/L (4-49)
[2025-01-05 04:15] VITALS: BP 114/58; PULSE 60; RESP 18; TEMP 98
== END 2025-01-05 04:16 | disposition home or self-care (01) ==
LOC: EC 00:33
DX: G40.909 Epilepsy, unspecified, not intractable, without status epilepticus (principal); F17.290 Nicotine dependence, other tobacco product, uncomplicated
CPT/HCPCS: 36415; 80053; 83735; 85025; 93005; 99285